=== PATIENT | female | born 1935 | race Caucasian/White ===

== ENCOUNTER 2016-09-01 06:13 | Day surgery (SDC) | payer MEDICARE, OTHER ==
[2016-09-01] MEDS ORDERED: Lidocaine 2% 5 ML SDV ONE ×3 (07:13→09:05)
[2016-09-01] MEDS ORDERED: fentaNYL 250 MCG/5 ML SDV ONE (07:14)
[2016-09-01] MEDS ORDERED: Midazolam 1 MG/ML 2 ML SDV ONE (07:14)
[2016-09-01] MEDS ORDERED: Propofol 200 MG/20 ML SDV ONE (07:14)
[2016-09-01] MEDS ORDERED: Ketorolac 30 MG/ML SDV ONE (07:15)
[2016-09-01] MEDS ORDERED: Rocuronium 10 MG/ML 10 ML Syringe ONE (07:15)
[2016-09-01] MEDS ORDERED: Ondansetron 4 MG/2 ML SDV ONE (07:15)
[2016-09-01 07:20] LABS: CHLORIDE,CL 107 mmol/L (98-110); SODIUM,NA 143 mmol/L (136-146)
[2016-09-01] MEDS ORDERED: ceFAZolin 1 GM in Premix Bag 1 BAG IV ONE (07:32)
--- NOTE | 2016-09-01 07:33 | PCM.PREANE ---
Preanesthetic Assessment - Anesthesia/Transfusion/Family Hx Anesthesia History: Prior Anesthesia Reaction Type of Anesthesia Reaction: Excessive Nausea/Vomiting Other Type of Anesthesia Reaction Comment: daughter states they plan on epidural or spinal anesthesia Family History of Anesthesia Reaction: No Transfusion History: No Prior Transfusion(s) - Review of Systems General: No Symptoms Pulmonary: No Symptoms Cardiovascular: No Symptoms Gastrointestinal: No symptoms Neurological: No Symptoms Other: Reports: None - Physical Assessment NPO Status Date: 08/31/16 O2 Sat by Pulse Oximetry: 97 Respiratory Rate: 16 Vital Signs: Last Vital Signs Temp 36.6 C 09/01/16 06:58 Pulse 71 09/01/16 06:58 Resp 16 09/01/16 06:58 BP Pulse Ox 97 09/01/16 06:58 Height: 1.52 m Weight: 54.431 kg ASA Class: 2 Mental Status: Alert & Oriented x3 Airway Class: Mallampati = 2 Dentition: Reports: Normal Dentition Lungs: Clear to auscultation, Normal respiratory effort Cardiovascular: Regular Rate, Regular Rhythm - Lab Values: Laboratory Last Values WBC 6.99 K/uL (4.0-11.0) 09/01/16 06:41 RBC 4.19 M/uL (4.30-5.90) L 09/01/16 06:41 Hgb 12.2 g/dL (12.0-16.0) 09/01/16 06:41 Hct 37.1 % (36.0-46.0) 09/01/16 06:41 MCV 88.5 fL (80.0-98.0) 09/01/16 06:41 MCH 29.1 pg (27.0-32.0) 09/01/16 06:41 MCHC 32.9 g/dL (31.0-37.0) 09/01/16 06:41 RDW Std Deviation 44.0 fl (28.0-62.0) 09/01/16 06:41 RDW Coeff of Miguel Angel 14 % (11.0-15.0) 09/01/16 06:41 Plt Count 233 K/uL (150-400) 09/01/16 06:41 MPV 10.30 fL (7.40-12.00) 09/01/16 06:41 Nucleated RBC % 0.0 /100WBC 09/01/16 06:41 Nucleated RBCs # 0 K/uL 09/01/16 06:41 Sodium 143 mmol/L (136-146) 09/01/16 06:41 Potassium 4.0 mmol/L (3.5-5.1) 09/01/16 06:41 Chloride 107 mmol/L (98-110) 09/01/16 06:41 Carbon Dioxide 27 mmol/L (21-31) 09/01/16 06:41 BUN 14 mg/dL (6.0-23.0) 09/01/16 06:41 Creatinine 0.8 mg/dL (0.6-1.5) 09/01/16 06:41 Est Cr Clr Drug Dosing 40.96 mL/min 09/01/16 06:41 Estimated GFR (MDRD) > 60.0 ml/min 09/01/16 06:41 Glucose 99 mg/dL (60-110) 09/01/16 06:41 Calcium 9.6 mg/dL (8.8-10.8) 09/01/16 06:41 - Allergies Allergies/Adverse Reactions: Allergies Allergy/AdvReac Type Severity Reaction Status Date / Time No Known Allergies Allergy Verified 08/28/16 16:19 - Anesthesia Plan Free Text/Narrative:: Took oral Ativan at nursing facility this am Pre-Op Medication Ordered: None - Acknowledgements Anesthesia Type Planned: Spinal Pt an Appropriate Candidate for the Planned Anesthesia: Yes Alternatives and Risks of Anesthesia Discussed w Pt/Guardian: Yes Pt/Guardian Understands and Agrees with Anesthesia Plan: Yes PreAnesthesia Questionnaire HEENT History: Reports: Hard of hearing Other HEENT History: wears glasses Cardiovascular History: Reports: Blood clots/VTE/DVT, Hypertension Respiratory History: Reports: None Gastrointestinal History: Reports: None Genitourinary History: Reports: None 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: Musculoskeletal History: Reports: None Neurological History: Reports: Vertigo Psychiatric History: Reports: Anxiety, Dementia Endocrine/Metabolic History: Reports: Hypothyroidism Other Hematologic History: daughter unsure of any transfusions Dermatologic History: Reports: None - Infectious Disease History Infectious Disease History: Reports: None - Past Surgical History Head Surgeries/Procedures: Reports: None HEENT Surgical History: Reports: Other (see below) Other HEENT Surgeries/Procedures: ear surgery (hard of hearing in left ear) GI Surgical History: Reports: Other (see below) Other GI Surgeries/Procedures: complications related to bowel resection Female Surgical History: Reports: Breast biopsy, Hysterectomy Other Female Surgeries/Procedures: several breast bx's Musculoskeletal Surgical History: Reports: Arthroscopic knee Dermatological Surgical History: Reports: None - SUBSTANCE USE Smoking Status *Q: Never Smoker Tobacco Use Within Last Twelve Months: Cigarettes Second Hand Smoke Exposure: No Recreational Drug Use History: No - HOME MEDS Home Medications: Home Meds Esomeprazole [NexIUM] 40 mg PO QAM 07/19/14 [History] Levothyroxine [Synthroid] 1 tab PO DAILY 12/08/14 [History] Estradiol [Vagifem] 1 tab VAG ASDIRECTED 07/15/16 [History] LORazepam [Ativan] 0.5 mg PO ASDIRECTED PRN 07/15/16 [History] Acetaminophen 1 tab PO Q4H PRN 07/20/16 [History] Carboxymethylcellulos/Glycerin [Refresh Optive Gel Eye Drops] 1 drop EYEBOTH ASDIRECTED PRN 07/20/16 [History] Cyanocobalamin (Vitamin B12) [Vitamin B12] 1,000 mcg PO DAILY 07/20/16 [History] Dextran 70/Hypromellose [Artificial Tears Eye Drops] 1 drop ETTUBE ASDIRECTED [History] Docusate Sodium 1 tab.chew PO BID PRN 07/20/16 [History] Fluticasone Propionate [Flonase Allergy Relief] 2 spray NASBOTH ASDIRECTED PRN 07/20/16 [History] Magnesium Hydroxide [Milk of Magnesia] 1 dose PO ASDIRECTED PRN 07/20/16 [ History] Memantine HCl [Namenda XR] 7 mg PO BEDTIME 07/20/16 [History] Mylanta 30 ml PO ASDIRECTED PRN 07/20/16 [History] Polyethylene Glycol 3350 [MiraLAX] 1 dose PO DAILY 07/20/16 [History] Witch Lottie [Tucks] 1 pad RECTAL ASDIRECTED PRN 07/20/16 [History] - CURRENT (IN HOUSE) MEDS Current Meds: Current Medications Discontinued Medications Fentanyl (Sublimaze) Confirm Administered Dose 250 mcg .ROUTE .STK-MED ONE Stop: 09/01/16 07:15 Ketorolac Tromethamine (Toradol) Confirm Administered Dose 30 mg .ROUTE .STK- MED ONE Stop: 09/01/16 07:16 Lidocaine (Xylocaine-Mpf 2%) Confirm Administered Dose 10 ml .ROUTE .STK-MED ONE Stop: 09/01/16 07:14 Midazolam HCl (Versed 1 Mg/Ml) Confirm Administered Dose 2 mg .ROUTE .STK-MED ONE Stop: 09/01/16 07:15 Ondansetron HCl (Zofran) Confirm Administered Dose 4 mg .ROUTE .STK-MED ONE Stop: 09/01/16 07:16 Propofol (Diprivan 20 Ml) Confirm Administered Dose 400 mg .ROUTE .STK-MED ONE Stop: 09/01/16 07:15 Rocuronium [place] (Zemuron) Confirm Administered Dose 100 mg .ROUTE .STK-MED ONE Stop: 09/01/16 07:16 Preanesthetic Assessment - ANESTHESIA/TRANSFUSION/FAMILY HX Anesthesia/Transfusion History: Prior Anesthesia, Prior Transfusion Other Type of Anesthesia Reaction Comment: daughter states they plan on epidural or spinal anesthesia Family History of Anesthesia Reaction: No - PHYSICAL ASSESSMENT O2 Sat by Pulse Oximetry: 97 RR: 16 Vital Signs: Last Vital Signs Temp 36.6 C 09/01/16 06:58 Pulse 71 09/01/16 06:58 Resp 16 09/01/16 06:58 BP Pulse Ox 97 09/01/16 06:58 Height: 1.52 m Weight: 54.431 kg - LAB Values: Laboratory Last Values WBC 6.99 K/uL (4.0-11.0) 09/01/16 06:41 RBC 4.19 M/uL (4.30-5.90) L 09/01/16 06:41 Hgb 12.2 g/dL (12.0-16.0) 09/01/16 06:41 Hct 37.1 % (36.0-46.0) 09/01/16 06:41 MCV 88.5 fL (80.0-98.0) 09/01/16 06:41 MCH 29.1 pg (27.0-32.0) 09/01/16 06:41 MCHC 32.9 g/dL (31.0-37.0) 09/01/16 06:41 RDW Std Deviation 44.0 fl (28.0-62.0) 09/01/16 06:41 RDW Coeff of Miguel Angel 14 % (11.0-15.0) 09/01/16 06:41 Plt Count 233 K/uL (150-400) 09/01/16 06:41 MPV 10.30 fL (7.40-12.00) 09/01/16 06:41 Nucleated RBC % 0.0 /100WBC 09/01/16 06:41 Nucleated RBCs # 0 K/uL 09/01/16 06:41 Sodium 143 mmol/L (136-146) 09/01/16 06:41 Potassium 4.0 mmol/L (3.5-5.1) 09/01/16 06:41 Chloride 107 mmol/L (98-110) 09/01/16 06:41 Carbon Dioxide 27 mmol/L (21-31) 09/01/16 06:41 BUN 14 mg/dL (6.0-23.0) 09/01/16 06:41 Creatinine 0.8 mg/dL (0.6-1.5) 09/01/16 06:41 Est Cr Clr Drug Dosing 40.96 mL/min 09/01/16 06:41 Estimated GFR (MDRD) > 60.0 ml/min 09/01/16 06:41 Glucose 99 mg/dL (60-110) 09/01/16 06:41 Calcium 9.6 mg/dL (8.8-10.8) 09/01/16 06:41 - ALLERGIES Allergies/Adverse Reactions: Allergies Allergy/AdvReac Type Severity Reaction Status Date / Time No Known Allergies Allergy Verified 08/28/16 16:19
[2016-09-01] MEDS ORDERED: ePHEDrine 50 MG/ML SDV ONE (07:47)
[2016-09-01] MEDS ORDERED: fentaNYL 100 MCG/2 ML SDV ONE (07:48)
[2016-09-01] MEDS ORDERED: Lactated Ringers 1,000 ML IV SCH (08:00)
[2016-09-01] MEDS ORDERED: Neostigmine Methylsulfate 1 MG/ML 5 ML Syringe IV ONE (09:06)
[2016-09-01] MEDS ORDERED: Nalbuphine 10 MG/1 ML Vial IVPUSH ONE (09:42)
[2016-09-01] MEDS ORDERED: Promethazine 25 MG/ML SDV IM PRN (09:47)
[2016-09-01] MEDS ORDERED: Ondansetron 4 MG/2 ML SDV IVPUSH PRN (09:47)
[2016-09-01] MEDS ORDERED: Acetaminophen 325 MG Tab PO PRN (09:58)
--- NOTE | 2016-09-01 10:10 | PCM.POSTAN ---
POST ANESTHESIA ASSESSMENT - MENTAL STATUS Mental Status: alert, other (Mental status returned to baseline) - RESPIRATORY Respiratory Status: respiratory rate WNL, airway patent, O2 saturation stable - CARDIOVASCULAR CV Status: pulse rate WNL, blood pressure stable - GASTROINTESTINAL GI Status: no symptoms - POST OP HYDRATION Hydration Status: adequate & stable
[2016-09-01] MEDS: Ketorolac 15 MG/ML SDV IVPUSH SCH ×3 (10:38→17:22)
--- NOTE | 2016-09-01 11:08 | PCM.OPNOTE ---
- General Post-Op/Procedure Note Date of Surgery/Procedure: 09/01/16 Operative Procedure(s): Enterocele repair. Posterior colporraphy. Perineorraphy Findings: Fourth degree rectocele, 2nd degree cystocele. Urethral caruncle. Posterior forchette with dense scarring from prior trauma. Pre Op Diagnosis: Symptomatic eterocele. Symptomatic rectocele. Thinned perineum. Vaginal atrophy Post-Op Diagnosis: Same Anesthesia Technique: Spinal Primary Surgeon: Heather Golden Secondary Surgeon: Jigna Caldera Pathology: vaginal mucosa Fluid Replacement, Intraop: 1,000 Output, Urine Amount: 100 EBL in mLs: 20 Complications: None known Condition: Good Free Text/Narrative:: Intake & Output 08/31/16 09/01/16 09/01/16 22:59 06:59 14:59 Intake Total 1400 Output Total 1050 Balance 350 JobID#
[2016-09-01 15:11] VITALS: BP 140/65
--- NOTE | 2016-09-01 18:14 | PCM.SURGPN ---
- General Info Date of Service: 09/01/16 POD#: 0 Functional Status: Reports: pain controlled, tolerating diet, ambulating, urinating - Review of Systems General: Reports: No Symptoms HEENT: Reports: no symptoms Pulmonary: Reports: no symptoms Cardiovascular: Reports: No Symptoms Gastrointestinal: Reports: No symptoms Genitourinary: Reports: no symptoms Musculoskeletal: Reports: no symptoms Skin: Reports: no symptoms Neurological: Reports: No Symptoms, Confusion (pt with baseline confusion from dementia) Psychiatric: Reports: no symptoms (nothing new for patient) - Patient Data Vitals - most recent: Last Vital Signs Temp 36.7 C 09/01/16 10:45 Pulse 75 09/01/16 14:15 Resp 19 09/01/16 14:15 BP 140/65 09/01/16 14:15 Pulse Ox 94 L 09/01/16 14:15 Weight - most recent: 54.431 kg I&O - last 24 hours: Intake & Output 09/01/16 09/01/16 09/01/16 06:59 14:59 22:59 Intake Total 2873 1250 Output Total 1150 850 Balance 1723 400 Lab Results last 24 hrs: Laboratory Results - last 24 hr 09/01/16 09/01/16 09/01/16 Range/Units 06:41 06:41 06:41 WBC 6.99 (4.0-11.0) K/uL RBC 4.19 L (4.30-5.90) M/uL Hgb 12.2 (12.0-16.0) g/dL Hct 37.1 (36.0-46.0) % MCV 88.5 (80.0-98.0) fL MCH 29.1 (27.0-32.0) pg MCHC 32.9 (31.0-37.0) g/dL RDW Std Deviation 44.0 (28.0-62.0) fl RDW Coeff of Miguel Angel 14 (11.0-15.0) % Plt Count 233 (150-400) K/uL MPV 10.30 (7.40-12.00) fL Nucleated RBC % 0.0 /100WBC Nucleated RBCs # 0 K/uL Sodium 143 (136-146) mmol/L Potassium 4.0 (3.5-5.1) mmol/L Chloride 107 (98-110) mmol/L Carbon Dioxide 27 (21-31) mmol/L BUN 14 (6.0-23.0) mg/dL Creatinine 0.8 (0.6-1.5) mg/dL Est Cr Clr Drug Dosing 40.96 mL/min Estimated GFR (MDRD) > 60.0 ml/min Glucose 99 (60-110) mg/dL Calcium 9.6 (8.8-10.8) mg/dL Blood Type B POSITIVE Antibody Screen NEGATIVE Med Orders - Current: Current Medications Acetaminophen (Tylenol) 650 mg PO Q6H PRN PRN Reason: Breakthrough Pain Ketorolac Tromethamine (Toradol) 15 mg IVPUSH Q6H [facility] Last Admin: 09/01/16 17:22 Dose: Not Given Ondansetron HCl (Zofran) 4 mg IVPUSH Q6H PRN PRN Reason: Nausea/Vomiting Last Admin: 09/01/16 10:40 Dose: 4 mg Promethazine HCl (Phenergan) 25 mg IM Q6H PRN PRN Reason: Nausea/Vomiting Last Admin: 09/01/16 11:51 Dose: 25 mg Discontinued Medications Ephedrine Sulfate (Ephedrine Sulfate) Confirm Administered Dose 50 mg .ROUTE .STK-MED ONE Stop: 09/01/16 07:48 Fentanyl (Sublimaze) Confirm Administered Dose 250 mcg .ROUTE .STK-MED ONE Stop: 09/01/16 07:15 Fentanyl (Sublimaze) Confirm Administered Dose 100 mcg .ROUTE .STK-MED ONE Stop: 09/01/16 07:49 Glycopyrrolate () 1 mg IVPUSH .STK-MED ONE Stop: 09/01/16 09:07 Cefazolin Sodium/Dextrose 1 gm (/ Premix) 50 mls @ 100 mls/hr IV ONETIME ONE Stop: 09/01/16 08:01 Last Admin: 09/01/16 14:58 Dose: Not Given Lactated Ringer's (Ringers, Lactated) 1,000 mls @ 125 mls/hr IV ASDIRECTED [facility] Last Admin: 09/01/16 06:45 Dose: 125 mls/hr Ketorolac Tromethamine (Toradol) Confirm Administered Dose 30 mg .ROUTE .STK- MED ONE Stop: 09/01/16 07:16 Lidocaine (Xylocaine-Mpf 2%) Confirm Administered Dose 10 ml .ROUTE .STK-MED ONE Stop: 09/01/16 07:14 Lidocaine (Xylocaine-Mpf 2%) Confirm Administered Dose 5 ml .ROUTE .STK-MED ONE Stop: 09/01/16 09:06 Lidocaine (Xylocaine-Mpf 2%) Confirm Administered Dose 5 ml .ROUTE .STK-MED ONE Stop: 09/01/16 09:06 Midazolam HCl (Versed 1 Mg/Ml) Confirm Administered Dose 2 mg .ROUTE .STK-MED ONE Stop: 09/01/16 07:15 Nalbuphine HCl (Nubain) 5 mg IVPUSH ONETIME ONE Stop: 09/01/16 09:43 Last Admin: 09/01/16 09:49 Dose: 2.5 mg Neostigmine Methylsulfate (Neostigmine) 5 mg IV .STK-MED ONE Stop: 09/01/16 09:07 Ondansetron HCl (Zofran) Confirm Administered Dose 4 mg .ROUTE .STK-MED ONE Stop: 09/01/16 07:16 Propofol (Diprivan 20 Ml) Confirm Administered Dose 400 mg .ROUTE .STK-MED ONE Stop: 09/01/16 07:15 Rocuronium [place] (Zemuron) Confirm Administered Dose 100 mg .ROUTE .STK-MED ONE Stop: 09/01/16 07:16 - Exam General: alert, oriented Neck: supple Abdomen: soft Extremities: no calf tenderness Skin: warm, dry, intact Neurological: no new focal deficit Psy/Mental Status: alert, normal affect, normal mood - Problem List & Annotations (1) Prolapse of posterior vaginal wall SNOMED Code(s): 485694103 Code(s): N81.6 - RECTOCELE Status: Acute Current Visit: Yes - Problem List Review Problem List Initiated/Reviewed/Updated: Yes - My Orders Last 24 Hours: Active Orders 24 hr Category Date Time Status Patient Status [ADT] Routine ADT 09/01/16 09:47 Active Antiembolic Devices [RC] PER UNIT ROUTINE Care 09/01/16 09:55 Active Notify Provider Intake and Out [RC] ASDIRECTED Care 09/01/16 09:47 Active Notify Provider Vital Signs [RC] ASDIRECTED Care 09/01/16 09:47 Active RT Incentive Spirometry [RC] Q2HWA Care 09/01/16 09:47 Active Ready for Discharge [RC] PER UNIT ROUTINE Care 09/01/16 18:06 Ordered Up With Assistance [RC] PER UNIT ROUTINE Care 09/01/16 09:47 Active Up ad Rosie [RC] PER UNIT ROUTINE Care 09/01/16 09:47 Active Urinary Catheter Removal [RC] Per Unit Routine Care 09/01/16 14:02 Active Vaginal Packing Removal [RC] Click To Edit Care 09/01/16 14:01 Active Vital Signs [RC] PER UNIT ROUTINE Care 09/01/16 09:47 Active Regular Diet [DIET] Diet 09/01/16 Lunch Active Acetaminophen [Tylenol] Med 09/01/16 09:58 Active 650 mg PO Q6H PRN Ketorolac [Toradol] Med 09/01/16 10:00 Active 15 mg IVPUSH Q6H Ondansetron [Zofran] Med 09/01/16 09:47 Active 4 mg IVPUSH Q6H PRN Promethazine [Phenergan] Med 09/01/16 09:47 Active 25 mg IM Q6H PRN Peripheral IV Discontinue [OM.PC] Routine Oth 09/01/16 09:47 Ordered Sequential Compression Device [OM.PC] Per Unit Routine Oth 09/01/16 09:47 Ordered Resuscitation Status Routine Resus Stat 09/01/16 09:47 Ordered Medication Orders Acetaminophen (Tylenol) 650 mg PO Q6H PRN PRN Reason: Breakthrough Pain Ketorolac Tromethamine (Toradol) 15 mg IVPUSH Q6H [facility] Last Admin: 09/01/16 17:22 Dose: Admin: 09/01/16 10:38 Dose: 15 mg Ondansetron HCl (Zofran) 4 mg IVPUSH Q6H PRN PRN Reason: Nausea/Vomiting Last Admin: 09/01/16 10:40 Dose: 4 mg Promethazine HCl (Phenergan) 25 mg IM Q6H PRN PRN Reason: Nausea/Vomiting Last Admin: 09/01/16 11:51 Dose: 25 mg - Assessment Assessment (Free Text/Narrative):: Pt is doing well with ambulation, urination and eating Pt desires discharge home Pt would be better suited back at [address] to dementia - Plan Plan (Free Text/Narrative):: Discharge home to [place] today Discharge instructions given to pts daughter Follow up 2wks for postop visit
--- NOTE | 2016-09-03 12:28 | OR ---
SURGEON: Heather Golden DATE OF PROCEDURE: 09/01/2016 BRIEF PREOPERATIVE HISTORY: This is a 81-year-old P2 who presented to [facility] approximately 2 years earlier with complaints of vaginal bulge. The patient was known to be menopausal with a significant rectocele 4th degree and rectocele. The patient has a history of hysterectomy with removal of ovaries. The patient also has a significant history of worsening dementia. The patient was tried with a vaginal pessary and did not tolerate it. The patient eventually decided that she wanted definitive treatment via surgery. Though the patient does have worsening dementia, the patient's daughter who does work in the medical field has always accompanied the patient to visits and is also the patient's medical power of employment attorney. The patient's daughter agreed with her mother having surgical intervention via vaginal vault fixation or posterior repair or anterior repair if needed. The patient and patient's daughter was apprised of the risk of surgery being bleeding, infection, poor wound healing, possible damage to bowel, bladder, ureters, nerves or any other adjacent structures in the pelvis. The patient's daughter was also apprised of the risk of anesthesia and thromboembolic disease. Secondary to the patient's age and already existent partial dementia, it was decided that the patient would undergo regional anesthesia for the procedure. The patient was consented for posterior repair, possible vault suspension, or any other indicated procedures. The patient did receive medical clearance from her Dr. Dillon Kc at [facility]. PREOPERATIVE DIAGNOSES: 1. Symptomatic enterocele. 2. Symptomatic rectocele. 3. Thin perineum. 4. Vaginal atrophy. POSTOPERATIVE DIAGNOSES: 1. Symptomatic enterocele. 2. Symptomatic rectocele. 3. Thin perineum. 4. Vaginal atrophy. PROCEDURES PERFORMED: 1. Enterocele repair. 2. Posterior colporrhaphy. 3. Perineorrhaphy. TENTS ASSEMBLER: Jigna Caldera M.D. ANESTHESIA: Spinal. ESTIMATED BLOOD LOSS: Approximately 20 mL. IV FLUIDS: 1000 mL of crystalloid. FINDINGS: Fourth-degree rectocele with enterocele, second-degree cystocele. Urethral caruncle. Posterior fourchette with dense scarring from prior trauma. To pathology was vaginal mucosa that was trimmed. COMPLICATIONS: None known. CONDITION: Postoperative was good. DESCRIPTION OF PROCEDURE: The patient was taken back to the operating room, where she was eventually transferred to her OR bed. The patient was setup for her spinal anesthesia. Prior to placing spinal anesthesia, the patient did have Venodyne on and active. Once spinal anesthesia was done, the patient was laid back down and the patient was carefully placed in dorsal lithotomy position in the [facility]. After appropriate positioning, the patient was examined and did have again significant rectocele that was protruding from the vagina under with complete relaxation of the lower extremities. The patient was then prepped and draped in the normal sterile fashion. A Brantley catheter was placed. A time-out was held to ensure was appropriate patient, appropriate position, and appropriate procedure. Also to note that the Venodyne was on and active, the patient did receive 2 g of IV Ancef prior to start of procedure. Attention then was turned to patient's vagina which more complete exam was done and again the patient had only a second-degree cystocele with a fourth degree rectocele. The patient's vaginal atrophy had improved with the use of vaginal estrogen. The patient's vaginal cuff was examined and the patient had excellent apical support. The patient had a significant enterocele in addition to the patient's rectocele. At this point, two Allis clamps were used on the posterior fourchette and the thinned perineum was visualized. An inverted triangular incision was made in the perineum to complete a perineorrhaphy after completion of the posterior repair. After removing the skin from the triangular piece of skin from the perineum, the posterior vaginal mucosa was injected with normal saline for hydrodissection. This was taken all the way up to the vaginal cuff. The vaginal mucosa was underscored with the Metzenbaum scissors and the posterior vaginal incision was made. The vaginal mucosa was dissected off the muscularis posteriorly and all the way up to the vaginal cuff. Once the posterior muscularis was completely revealed up to the vaginal cuff, an 0 Vicryl suture was used to reduce the enterocele in a pursestring fashion incorporating the posterior muscularis and also sides at the vaginal cuff. Once the pursestring suture was in, the enterocele was reduced and this was tied down. The first pursestring suture significantly almost completely reduced the enterocele. A 2nd pursestring suture was used to give the initial pursestring reduction of the enterocele support. This was done in a similar fashion, grasping the muscularis tissue and all 4 quadrants again reducing the enterocele. Once the 2nd pursestring suture was tied down, there was minimal to any rectocele that was noted. The remaining rectocele was reduced and with a traditional plication procedure, it was tied down. Once the rectocele was repaired, essentially there was no more protruding tissue from the patient's posterior vagina, and the enterocele and rectocele had been successfully reduced. At this point, the excess vaginal mucosa was trimmed. A 2-0 Vicryl suture in a running, locked fashion was used to reapproximate the posterior vagina from the vaginal cuff down to the perineum. At this point, attention then was turned to the perineum where perineorrhaphy was completed by reapproximating the bulbocavernosus muscle with a 2-0 Vicryl suture with this was done in a 3-layer technique as if repairing the second- degree perineal laceration. The skin was reapproximated with 3-0 Vicryl suture. Afterwards, the patient's vagina and perineum were hemostatic and the vagina was well approximated and the patient's genital hiatus was greatly reduced. Perineorrhaphy was completed secondary to thinned perineum and widened genital hiatus, possiblely if the patient had a failure of her repair, the patient's vagina could accommodate a pessary in the future. Of note, the patient was on vaginal estrogen preoperatively and the patient would be on vaginal estrogen postoperatively for at least 4wks. After procedure, a vaginal packing was placed with KY jelly. The patient was cleansed and the bed was returned to functioning position. The patient's legs were taken down out of the [facility]. The patient was eventually transferred over to her postoperative bed and taken to PACU in awake and stable condition. The patient tolerated the procedure well. Sponge, lap, needle, and instrument counts were correct on final count. DAYANARA / JO ANN /[id number] JANETH
== END 2016-09-01 18:40 | disposition home or self-care (01) ==
LOC: MW.SDS 06:13 → MW.MS 09:47 → MW.SDS 18:40
PROVIDERS: ATTEND Obstetrics & Gynecology
DX: N95.2 Postmenopausal atrophic vaginitis (principal); F41.9 Anxiety disorder, unspecified; E03.9 Hypothyroidism, unspecified; I10 Essential (primary) hypertension; Z79.899 Other long term (current) drug therapy; K21.9 Gastro-esophageal reflux disease without esophagitis; Z90.49 Acquired absence of other specified parts of digestive tract; Z90.710 Acquired absence of both cervix and uterus; Z98.890 Other specified postprocedural states; Z87.891 Personal history of nicotine dependence
CPT/HCPCS: 36415; 57260; 80048; 85027; 86850; 86900; 86901; 88305; J1885; J2300; J2405; J2550; J3010; J7120; 00942; J2250; J2704

== ENCOUNTER 2016-11-14 11:10 | Emergency (ER) | payer MEDICARE, OTHER ==
--- NOTE | 2016-11-14 11:20 | EDM.PDOC ---
ED HPI GENERAL MEDICAL PROBLEM - General Stated Complaint: POSSIBLE EAR INFECTION Time Seen by Provider: 11/14/16 11:13 - History of Present Illness INITIAL COMMENTS - FREE TEXT/NARRATIVE: HISTORY AND PHYSICAL: History of present illness: Patient is a 81-year-old white female present with concern of left ear pain x2 days no fever no chills no sore throat chest pain cough shortness of breath or other concern Review of systems: As per history of present illness and below otherwise all systems reviewed and negative. Past medical history: As per history of present illness and as reviewed below otherwise noncontributory. Surgical history: As per history of present illness and as reviewed below otherwise noncontributory. Social history: No reported history of drug or alcohol abuse. Family history: As per history of present illness and as reviewed below otherwise noncontributory. Physical exam: HEENT: Atraumatic, normocephalic, pupils reactive, negative for conjunctival pallor or scleral icterus, mucous membranes moist, throat clear, neck supple, nontender, trachea midline. Left TM is slightly dull absent light reflex Lungs: Clear to auscultation, breath sounds equal bilaterally, chest nontender. Heart: S1S2, regular, Abdomen: Soft, nondistended, nontender. Pelvis: Stable nontender. Genitourinary: Deferred. Rectal: Deferred. Extremities: Atraumatic, negative for cords or calf pain. Neurovascular unremarkable. Neuro: Awake, alert, follows commands moves all extremities limited but grossly nonfocal exam Diagnostics: None Therapeutics: None Impression: #1 left otalgia #2 otitis media Definitive disposition and diagnosis as appropriate pending reevaluation and review of above. - Related Data Allergies Allergy/AdvReac Type Severity Reaction Status Date / Time No Known Allergies Allergy Verified 08/28/16 16:19 Home Meds: Home Meds Levothyroxine [Synthroid] 88 mcg PO DAILY@1700 12/08/14 [History] Estradiol [Vagifem] 10 mcg VAG DAILY 07/15/16 [History] LORazepam [Ativan] 0.5 mg PO BID PRN 07/15/16 [History] Acetaminophen 500 mg PO Q4H PRN 07/20/16 [History] Carboxymethylcellulos/Glycerin [Refresh Optive Gel Eye Drops] 1 drop EYEBOTH ASDIRECTED PRN 07/20/16 [History] Cyanocobalamin (Vitamin B12) [Vitamin B12] 1,000 mcg PO DAILY 07/20/16 [History] Fluticasone Propionate [Flonase Allergy Relief] 2 spray NASBOTH ASDIRECTED PRN 07/20/16 [History] Magnesium Hydroxide [Milk of Magnesia] 30 ml PO Q24H PRN 07/20/16 [History] Polyethylene Glycol 3350 [MiraLAX] 17 gm PO DAILY 07/20/16 [History] Junior Tafoya [Tucks] 1 applic RECTAL ASDIRECTED PRN 07/20/16 [History] Calcium Carb/Magnesium Hydrox [Antacid Chewable Tablet] 1 tab PO ASDIRECTED PRN 09/01/16 [History] Docusate Sodium 100 mg PO BID 09/01/16 [History] Esomeprazole Magnesium [Nexium] 20 mg PO ACBREAKFAST 09/01/16 [History] Mag Hydrox/Al Hydrox/Simeth [Maalox Maximum Strength Susp] 30 ml PO ASDIRECTED PRN 09/01/16 [History] Memantine HCl [Namenda] 5 mg PO BID 09/01/16 [History] Mineral Oil/Petrolatum,White [Artificial Tears Eye Ointment] 1 applic EYEBOTH ASDIRECTED PRN 09/01/16 [History] Mineral Oil/Petrolatum,White [Artificial Tears Eye Ointment] 1 applic EYEBOTH BEDTIME 09/01/16 [History] Past Medical History HEENT History: Reports: Hard of Hearing Other HEENT History: wears glasses Cardiovascular History: Reports: Blood Clots/VTE/DVT, Hypertension Respiratory History: Reports: None Gastrointestinal History: Reports: None Genitourinary History: Reports: None 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: Musculoskeletal History: Reports: None Neurological History: Reports: Vertigo Psychiatric History: Reports: Anxiety, Dementia Endocrine/Metabolic History: Reports: Hypothyroidism Other Hematologic History: daughter unsure of any transfusions Dermatologic History: Reports: None - Infectious Disease History Infectious Disease History: Reports: None - Past Surgical History HEENT Surgical History: Reports: Other (See Below) GI Surgical History: Reports: Other (See Below) Female Surgical History: Reports: Breast Biopsy, Hysterectomy Neurological Surgical History: Musculoskeletal Surgical History: Reports: Arthroscopic Knee Social & Family History - Tobacco Use Smoking Status *Q: Never Smoker Years of Tobacco use: 15 Used Tobacco, but Quit: Yes Month Tobacco Last Used: 20 yrs Second Hand Smoke Exposure: No - Recreational Drug Use Recreational Drug Use: No ED ROS GENERAL - Review of Systems Review Of Systems: ROS reveals no pertinent complaints other than HPI. ED EXAM, GENERAL - Physical Exam Exam: See Below (See dictation) Departure - Departure Time of Disposition: 11:18 Disposition: Home, Self-Care 01 Condition: good Clinical Impression: Otitis media - Discharge Information Additional Instructions: The following information is given to patients seen in the emergency department who are being discharged to home. This information is to outline your options for follow-up care. We provide all patients seen in our emergency department with a follow-up referral. The need for follow-up, as well as the timing and circumstances, are variable depending upon the specifics of your emergency department visit. If you don't have a primary care physician on staff, we will provide you with a referral. We always advise you to contact your personal physician following an emergency department visit to inform them of the circumstance of the visit and for follow-up with them and/or the need for any referrals to a consulting specialist. The emergency department will also refer you to a specialist when appropriate. This referral assures that you have the opportunity for followup care with a specialist. All of these measure are taken in an effort to provide you with optimal care, which includes your followup. Under all circumstances we always encourage you to contact your private physician who remains a resource for coordinating your care. When calling for followup care, please make the office aware that this follow-up is from your recent emergency room visit. If for any reason you are refused follow-up, please contact the [facility] emergency department at and asked to speak to the emergency department charge nurse. Bactrim as prescribed Tylenol as directed follow up primary medical doctor one to 2 days return as needed as discussed
[2016-11-14 19:17] VITALS: BP 170/71
== END 2016-11-14 11:35 | disposition home or self-care (01) ==
LOC: MW.ED 11:10
DX: H66.92 Otitis media, unspecified, left ear (principal); I10 Essential (primary) hypertension; F41.9 Anxiety disorder, unspecified; F03.90 Unspecified dementia, unspecified severity, without behavioral disturbance, psychotic disturbance, mood disturbance, and anxiety; E03.9 Hypothyroidism, unspecified; Z86.718 Personal history of other venous thrombosis and embolism; Z90.710 Acquired absence of both cervix and uterus; Z98.890 Other specified postprocedural states; Z79.899 Other long term (current) drug therapy
CPT/HCPCS: 99282; 99283

== ENCOUNTER 2019-03-08 02:49 | Emergency (ER) | payer MEDICARE, MEDICAID ==
[2019-03-08 03:15] VITALS: BP 139/77; PULSE 66
--- NOTE | 2019-03-08 04:20 | CT ---
INDICATION: Fall, head injury and altered mental status. TECHNIQUE: CT head without contrast. COMPARISON: None. FINDINGS: CSF spaces: Within normal limits for age. Brain parenchyma: There is no intracranial bleed or significant mass effect. Sung-white differentiation is distinct. However, at the inferior margin of the frontal lobes along the falx in sulci appear subtly effaced with a small punctate calcification noted (201, 14; 203, 18). Skull base and calvarium: The visualized paranasal sinuses and mastoid air cells demonstrate no acute or significant findings. The visualized orbits are grossly unremarkable. No skull fractures. Left temporomandibular joint osteoarthritis. IMPRESSION: 1. No intracranial bleed or mass effect. 2. Some indistinct sulcal effacement with punctate calcification at the inferior margin of the frontal lobes along the falx. This is poorly defined although suspect there is a subtle extra-axial lesion, likely meningioma. Follow-up outpatient MRI suggested for better characterization. Please note that all CT scans at this facility use dose modulation, iterative reconstruction, and/or weight-based dosing when appropriate to reduce radiation dose to as low as reasonably achievable. Dictated by Zenon Clayton MD @ Mar 08 2019 4:13AM Signed by Dr. Zenon Clayton @ Mar 08 2019 4:18AM
--- NOTE | 2019-03-08 04:35 | EDM.PDOC ---
ED HPI GENERAL MEDICAL PROBLEM - General Chief Complaint: Head Injury Stated Complaint: FALL Time Seen by Provider: 03/08/19 04:32 - History of Present Illness INITIAL COMMENTS - FREE TEXT/NARRATIVE: HISTORY AND PHYSICAL: History of present illness: Patient's 84-year-old female presents from longterm status post fall she sustained a laceration to her left face was no other tremor concern she has no other complaints Review of systems: As per history of present illness and below otherwise all systems reviewed and negative. Past medical history: As per history of present illness and as reviewed below otherwise noncontributory. Surgical history: As per history of present illness and as reviewed below otherwise noncontributory. Social history: No reported history of drug or alcohol abuse. Family history: As per history of present illness and as reviewed below otherwise noncontributory. Physical exam: HEENT: Laceration approximately 3 cm noted above her left thigh no step-off no depression good hemostasis, normocephalic, pupils reactive, negative for conjunctival pallor or scleral icterus, mucous membranes moist, throat clear, neck supple, nontender, trachea midline. Lungs: Clear to auscultation, breath sounds equal bilaterally, chest nontender. Heart: S1S2, regular, negative for clicks, rubs, or JVD. Abdomen: Soft, nondistended, nontender. Negative for masses or hepatosplenomegaly. Negative for costovertebral tenderness. Pelvis: Stable nontender. Genitourinary: Deferred. Rectal: Deferred. Extremities: Atraumatic, negative for cords or calf pain. Neurovascular unremarkable. Neuro: Awake, alert, follows commands and moves all extremities baseline per longterm nonfocal. Diagnostics: CT brain Therapeutics: Wound was anesthetized with 1% lidocaine without epinephrine irrigated 0.9 normal saline prepped and draped in a sterile manner closed with 5-0 absorbable suture bacitracin was applied Impression: #1 observation status post fall #2 head trauma with facial laceration Definitive disposition and diagnosis as appropriate pending reevaluation and review of above. - Related Data Allergies Allergy/AdvReac Type Severity Reaction Status Date / Time rofecoxib [From Vioxx] Allergy Other Verified 03/08/19 02:58 Home Meds: Home Meds Levothyroxine [Synthroid] 88 mcg PO DAILY@1700 12/08/14 [History] Estradiol [Vagifem] 10 mcg VAG DAILY 07/15/16 [History] LORazepam [Ativan] 0.5 mg PO BID PRN 07/15/16 [History] Acetaminophen 500 mg PO Q4H PRN 07/20/16 [History] Carboxymethylcellulos/Glycerin [Refresh Optive Gel Eye Drops] 1 drop EYEBOTH ASDIRECTED PRN 07/20/16 [History] Cyanocobalamin (Vitamin B12) [Vitamin B12] 1,000 mcg PO DAILY 07/20/16 [History] Fluticasone Propionate [Flonase Allergy Relief] 2 spray NASBOTH ASDIRECTED PRN 07/20/16 [History] Magnesium Hydroxide [Milk of Magnesia] 30 ml PO Q24H PRN 07/20/16 [History] Polyethylene Glycol 3350 [MiraLAX] 17 gm PO DAILY 07/20/16 [History] Junior Tafoya [Tucks] 1 applic RECTAL ASDIRECTED PRN 07/20/16 [History] Calcium Carb/Magnesium Hydrox [Antacid Chewable Tablet] 1 tab PO ASDIRECTED PRN 09/01/16 [History] Docusate Sodium 100 mg PO BID 09/01/16 [History] Esomeprazole Magnesium [Nexium] 20 mg PO ACBREAKFAST 09/01/16 [History] Mag Hydrox/Al Hydrox/Simeth [Maalox Maximum Strength Susp] 30 ml PO ASDIRECTED PRN 09/01/16 [History] Memantine HCl [Namenda] 10 mg PO BID 09/01/16 [History] Mineral Oil/Petrolatum,White [Artificial Tears Eye Ointment] 1 applic EYEBOTH ASDIRECTED PRN 09/01/16 [History] Mineral Oil/Petrolatum,White [Artificial Tears Eye Ointment] 1 applic EYEBOTH BEDTIME 09/01/16 [History] Diclofenac Potassium [Cambia] 03/08/19 [History] Divalproex Sodium [Depakote Sprinkle] 125 mg PO BIDMEALS 03/08/19 [History] Famotidine 40 mg PO DAILY 03/08/19 [History] Past Medical History HEENT History: Reports: Hard of Hearing Other HEENT History: wears glasses Cardiovascular History: Reports: Blood Clots/VTE/DVT, Hypertension Respiratory History: Reports: None Gastrointestinal History: Reports: None Genitourinary History: Reports: None 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: Musculoskeletal History: Reports: None Neurological History: Reports: Vertigo Psychiatric History: Reports: Anxiety, Dementia Endocrine/Metabolic History: Reports: Hypothyroidism Other Hematologic History: daughter unsure of any transfusions Dermatologic History: Reports: None - Infectious Disease History Infectious Disease History: Reports: Chicken Pox, Measles, Mumps - Past Surgical History Head Surgeries/Procedures: Reports: None HEENT Surgical History: Reports: Other (See Below) GI Surgical History: Reports: Other (See Below) Other GI Surgeries/Procedures: abdominal surgeries x 3 for bowel leak Female Surgical History: Reports: Breast Biopsy, Hysterectomy Musculoskeletal Surgical History: Reports: Arthroscopic Knee Social & Family History - Family History Family Medical History: Noncontributory - Tobacco Use Smoking Status *Q: Never Smoker - Caffeine Use Caffeine Use: Reports: None - Recreational Drug Use Recreational Drug Use: No ED ROS GENERAL - Review of Systems Review Of Systems: ROS reveals no pertinent complaints other than HPI. ED EXAM, HEAD INJURY - Physical Exam Exam: See Below (Dictation) Course - Vital Signs Last Recorded V/S: Last Vital Signs Temp 36.2 C 03/08/19 03:14 Pulse 66 03/08/19 03:14 Resp 16 03/08/19 03:14 BP 139/77 03/08/19 03:14 Pulse Ox 99 03/08/19 03:14 - Orders/Labs/Meds Meds: Medications Discontinued Medications Generic Name Dose Route Start Last Admin Trade Name Abdonq PRN Reason Stop Dose Admin Lidocaine HCl 5 ml 03/08/19 03:34 Xylocaine-Mpf 1% INJECT 03/08/19 03:35 ONETIME ONE Departure - Departure Time of Disposition: 04:34 Disposition: Home, Self-Care 01 Condition: Good Clinical Impression: Head injury, Facial laceration - Discharge Information Referrals: Dillon Kc MD [Primary Care Provider] - Additional Instructions: The following information is given to patients seen in the emergency department who are being discharged to home. This information is to outline your options for follow-up care. We provide all patients seen in our emergency department with a follow-up referral. The need for follow-up, as well as the timing and circumstances, are variable depending upon the specifics of your emergency department visit. If you don't have a primary care physician on staff, we will provide you with a referral. We always advise you to contact your personal physician following an emergency department visit to inform them of the circumstance of the visit and for follow-up with them and/or the need for any referrals to a consulting specialist. The emergency department will also refer you to a specialist when appropriate. This referral assures that you have the opportunity for followup care with a specialist. All of these measure are taken in an effort to provide you with optimal care, which includes your followup. Under all circumstances we always encourage you to contact your private physician who remains a resource for coordinating your care. When calling for followup care, please make the office aware that this follow-up is from your recent emergency room visit. If for any reason you are refused follow-up, please contact the [facility] emergency department at and asked to speak to the emergency department charge nurse. Follow-up primary medical doctor return as needed as discussed
== END 2019-03-08 05:30 | disposition home or self-care (01) ==
LOC: MW.ED 02:49
DX: S01.112A Laceration without foreign body of left eyelid and periocular area, initial encounter (principal); I10 Essential (primary) hypertension; F41.9 Anxiety disorder, unspecified; E03.9 Hypothyroidism, unspecified; Z86.718 Personal history of other venous thrombosis and embolism; Z88.8 Allergy status to other drugs, medicaments and biological substances; Z79.899 Other long term (current) drug therapy; W19.XXXA Unspecified fall, initial encounter
CPT/HCPCS: 70450; 70450-26; 99283-25